=== PATIENT | female | born 1985 | race Caucasian/White ===

== ENCOUNTER 2021-03-13 00:53 | Emergency (ER) | payer OTHER ==
[~2021-03-13] VITALS: Ht 167.6 cm; Wt 59.0 kg
--- NOTE | ~2021-03-13 | EMS ---
[facility] [address] [place] [address] EMS Patient Care Report Name: JEREMI HINSON Room #: REG MARCUS Ribeiro#: [id number] Admission: 03/13/21 Attend Phys: Discharge: Date of : 89 Report #: [id number] THIS REPORT FOR: //name// Report Transmitted: 03/13/2021 00:38 EMS Care Summary [facility] Incident [id number] @ 03/13/2021 00:06 Incident Location [address] [place] [address] Patient JEREMI HINSON Female, 25 Years 1995-11-05 Patient Address [address] [place] [address] Patient History Anxiety Disorder (Panic Attacks),Bipolar II Disorder, Patient Allergies No known allergies, Patient Medications None Reported, Chief Complaint Anxiety Attack Disposition Transported No Lights/[place] Dispatch Reason Breathing Problem Transported To [facility] Narrative Dispatched to difficulty breathing. Upon arrival pt found sitting on bathroom floor appearing very worked up and anxious. Pt states she was using the medicated soap to get rid of scabies when she started to see the bugs crawling out from her skin. Pt states her skin was hurting where the bugs came out and [facility] [address] [place] [address] EMS Patient Care Report Name: JEREMI HINSON Room #: SUSAN Ribeiro#: [id number] Admission: 03/13/21 Attend Phys: Discharge: Date of : 89 Report #: [id number] she began to get upset about seeing and feeling the bugs. Pt states she has history of anxiety attacks. Pt denies chest pain or shortness of breath. Pt was so worked up that she was throwing herself forward and backwards and flailing all over the stretcher attempting to get rid of the bugs. ALS assessment. court recording monitor, IV, 2mg Versed IV, BG, and O2 administered. Pt transported to ED for further evaluation and treatment by MD. Initial Vitals @00:22P: 139,R: 32,BP: 121/86,GCS: 15,SpO2: 100,Revised Trauma: 11, @00:36P: 99,R: 11,BP: 120/81,GCS: 14,CO: 0,SpO2: 98,Revised Trauma: 12, @00:42P: 93,R: 16,BP: 120/89,GCS: 14,CO: 1,SpO2: 97,Revised Trauma: 12, Assessments @00:15MENTAL:Person Oriented,Time Oriented,Place Oriented,Event Oriented,SKIN:HEENT:LUNG SOUNDS:ABDOMEN:PELVIS//GI:EXTREMITIES:Left Arm: No Abnormalities,Right Arm: No Abnormalities,Left Leg: No Abnormalities,Right Leg: No Abnormalities,PULSE:NEURO:Other,@00:30MENTAL:Person Oriented,Time Oriented,Place Oriented,Event Oriented,SKIN:Other,HEENT:LUNG SOUNDS:General: No Abnormalities,Left Upper: No Abnormalities,Right Upper: No Abnormalities,Left Lower: No Abnormalities,Right Lower: No Abnormalities,ABDOMEN:General: No Abnormalities,Left Upper: No Abnormalities,Right Upper: No Abnormalities,Left Lower: No Abnormalities,Right Lower: No Abnormalities,PELVIS//GI:EXTREMITIES:Left Arm: No Abnormalities,Right Arm: No Abnormalities,Left Leg: No Abnormalities,Right Leg: No Abnormalities,PULSE:NEURO: Impression Behavioral/psychiatric episode Procedures @00:15ALS AssessmentResponse: UnchangedSucceeded@00:26Saline Lock 5cc (20 ga) Site: Forearm-LeftResponse: UnchangedSucceeded@00:28Midazolam - 2 Milligrams (mg) - Intravenous (IV)Response: Improved@00:35Oxygen FlowRate: 2 Device: Nasal Cannula (NC) Response: ImprovedSucceeded Timeline 00:05,Call Received 00:05,Psap Call 00:06,Dispatched 00:08,En Route 00:12,On Scene 00:13,At Patient 00:15,ALS Assessment,Response: UnchangedSucceeded, 00:22,BP: 121/86 M,PULSE: 139,RR: 32 R,SPO2: 100 Ox,ETCO2: ,BG: ,PAIN: ,GCS: 15, 00:22,Depart Scene [facility] [address] [place] [address] EMS Patient Care Report Name: JEREMI HINSON Room #: REG MARCUS Ribeiro#: [id number] Admission: 03/13/21 Attend Phys: Discharge: Date of : 89 Report #: [id number] 00:26,Saline Lock 5cc 20 ga Site: Forearm-Left,Response: UnchangedSucceeded, 00:28,Midazolam - 2 Milligrams (mg) - Intravenous (IV),Response: Improved 00:35,Oxygen FlowRate: 2 Device: Nasal Cannula (NC) Response: ImprovedSucceeded, 00:36,BP: 120/81 M,PULSE: 99,RR: 11 R,SPO2: 98 Ox,ETCO2: ,BG: ,PAIN: ,GCS: 14, 00:42,BP: 120/89 M,PULSE: 93,RR: 16 R,SPO2: 97 Ox,ETCO2: ,BG: ,PAIN: ,GCS: 14, 00:47,At Destination 01:25,Call Closed Disclaimer v1.1 Copyright 2020 [employer] This EMS Care Summary contains data elements from the applicable legal record (which may be displayed differently). It is designed to provide pertinent information for the following purposes: continuity of care, clinical quality, and state data reporting. The complete legal record is available to ED staff and administrators of the receiving hospital in [employer] Patient Tracker. All data is provided "as is."
[2021-03-13] MEDS ORDERED: ACTICIN 5% CREA60 G1 TOP (01:48)
[2021-03-13 02:15] VITALS: BP 113/72
== END 2021-03-13 02:15 | disposition home or self-care (01) ==
LOC: EDBD 00:53 → ER 00:53
DX: F41.0 Panic disorder [episodic paroxysmal anxiety] (principal); B86 Scabies; L98.8 Other specified disorders of the skin and subcutaneous tissue